=== PATIENT | female | born 1985 | race Hispanic/Latino ===

== ENCOUNTER 2017-06-30 12:17 | Emergency (ER) | payer SELFPAY ==
[~2017-06-30 12:17] MED LIST: DOXY100T2 PO; METR500T PO
[2017-06-30] MEDS ORDERED: DIAZEPAM 5 MG TABLET ONE (13:02)
[2017-06-30] MEDS ORDERED: ACETAMINOPHEN EXTRA STRENGTH 500 MG TABLET ONE (13:02)
== END 2017-06-30 14:13 | disposition home or self-care (01) ==
LOC: EDH 12:17
DX: M54.6 Pain in thoracic spine (principal); R01.1 Cardiac murmur, unspecified; Z98.890 Other specified postprocedural states

== ENCOUNTER 2020-08-30 08:09 | Emergency (ER) | payer MEDICAID ==
[2020-08-30 08:38] LABS: BASOPHILS % (AUTO) 0.4 % (0.0-5.0); EOSINOPHILS % (AUTO) 1.2 % (0.0-8.0); HEMATOCRIT 35.8 % (36-48); LYMPHOCYTES % (AUTO) 15.4 % (21.0-51.0); MEAN CORPUSCULAR HEMOGLOBIN 18.9 pg (27.0-33.0); MEAN CORPUSCULAR HGB CONC 28.2 g/dL (32.0-36.0); MEAN CORPUSCULAR VOLUME 66.9 fL (79-99); MONOCYTES % (AUTO) 5.7 % (3.0-13.0); NEUTROPHILS % (AUTO) 76.8 % (40.0-77.0); PLATELET COUNT (AUTO) 547 K/uL (130-400); RED BLOOD CELL COUNT(AUTO) 5.35 MIL/uL (4.00-5.50); RED CELL DISTRIBUTION WIDTH 21.2 % (11.0-15.5); WHITE BLOOD COUNT (AUTO) 14.7 K/uL (4.8-10.8)
[2020-08-30 08:47] LABS: APPEARANCE,URINE Clear (CLEAR); BILIRUBIN,URINE Negative (NEGATIVE); COLOR,URINE Yellow (YELLOW); GLUCOSE, URINE (UA) Negative (NEGATIVE); KETONES,URINE Negative (NEGATIVE); LEUKOCYTE ESTERASE ,URINE Large (NEGATIVE); NITRATE,URINE Negative (NEGATIVE); OCCULT BLOOD,URINE Moderate (NEGATIVE); PROTEIN,URINE Negative (NEGATIVE)
[2020-08-30 09:06] LABS: BACTERIA,URINE Few /HPF (None Seen); SQUAMOUS EPITHELIAL CELL,UR 30-50 /HPF (0-2)
[2020-08-30 09:13] LABS: ALBUMIN 3.8 g/dL (3.5-5.0); BILIRUBIN,TOTAL 0.3 mg/dL (0.2-1.0); CREATININE 0.8 mg/dL (0.5-1.5); POTASSIUM 3.4 mmol/L (3.5-5.1); TOTAL PROTEIN, SERUM 8.4 g/dL (6.0-8.3)
[2020-08-30] MEDS ORDERED: CEFTRIAXONE SODIUM 1 GM ONE (09:22)
[2020-08-30] MEDS ORDERED: SODIUM CHLORIDE 0.9% 500ML 500 ML IV ONE (09:23)
== END 2020-08-30 13:25 | disposition home or self-care (01) ==
LOC: EDH 08:09
DX: O03.4 Incomplete spontaneous abortion without complication (principal); O23.41 Unspecified infection of urinary tract in pregnancy, first trimester; Z87.891 Personal history of nicotine dependence; Z88.8 Allergy status to other drugs, medicaments and biological substances; Z98.890 Other specified postprocedural states; Z3A.01 Less than 8 weeks gestation of pregnancy
CPT/HCPCS: 36415; 76801; 76817; 80053; 81001; 84702; 85025; 86900; 86901; 87088; 96365; 99284; J0696; J7040

== ENCOUNTER 2022-12-10 11:13 | Emergency (ER) | payer MEDICAID ==
[~2022-12-10] VITALS: Ht 149.9 cm; Wt 56.2 kg
[2022-12-10] MEDS ORDERED: IBUP-2070 PO (12:28)
[2022-12-10] MEDS ORDERED: KETOROLAC 60 MG VIAL (30MG/ML) IM ONE (12:30)
[2022-12-10 12:52] VITALS: BP 111/66
== END 2022-12-10 12:58 | disposition home or self-care (01) ==
LOC: EDH 11:13
DX: M77.9 Enthesopathy, unspecified (principal); M65.4 Radial styloid tenosynovitis [de Quervain]; Z88.5 Allergy status to narcotic agent; Z88.8 Allergy status to other drugs, medicaments and biological substances; Z90.49 Acquired absence of other specified parts of digestive tract; Z98.51 Tubal ligation status
CPT/HCPCS: 99283; 73100; 96372; 29125; J1885